=== PATIENT | female | born 1985 | race Caucasian/White ===

== ENCOUNTER 2018-01-04 09:46 | Day surgery (SDC) | payer MEDICAID, SELFPAY ==
[2018-01-04] VITALS (7 sets, daily range): BP systolic 92–119; BP diastolic 59–76; PULSE 102–107; RESP 18–20; TEMP 36.9–38.1; O2SAT 96–100; BMI 22.3
[2018-01-04 10:11] LABS: Internal QC Validated? YES +Cl - CLEAR BKGD; Pregnancy, Urine Negative Negative
[2018-01-04] MEDS: Cefazolin 2 GM in 0.9% Normal Saline 100 ML IV (12:02)
--- NOTE | 2018-01-04 12:16 | OP.PCM_ITS ---
Report of Operation Date of Procedure: 01/04/18 Pre-Operative Diagnosis: right carpal tunnel syndrome Post-Operative Diagnosis: same Surgery/Procedure Performed:: right carpal tunnel release Type of Anesthesia:: Doreen Sotomayor Anesthesiologist: Lupillo Chaney Estimated Blood Loss (mL): none Fluids Replaced: 600cc lr Description of Procedure: Piper right carpal tunnel Preoperative note Patient is a 32 year old patient with nerve conduction study confirming carpal tunnel syndrome. Patient failed conservative treatment for her carpal tunnel elected proceed with right carpal tunnel release. Risks benefits and alternatives surgery discussed with patient. Risks including but not limited to blood loss, blood clot, infection, neurovascular injury, failure procedure, loss of life and loss of limb. Patient is aware like proceed with right carpal tunnel release. Operative note Patient seen and examined preoperative holding area. right hand was marked. History and physical and consent reviewed. Patient was brought to the operating room placed supine on the operating table. Sign in, anesthesia, antibiotics were administered. right upper extremity was prepped and draped after [place] block was initiated. All bony prominences well-padded SCDs placed on bilateral lower extremities. We marked out our incisions for our carpal tunnel release at the intersection of Phoebe's line in the fourth ray flexed. We extended about a centimeter and a half. Timeout was performed. We then checked ensure that the Doreen block was working with pickups which it was not so we performed a local block of 10cc 1% lidocaine. We then used a 15 blade to make a skin incision. We then dissected down tenotomy syllable of the transverse carpal ligament. We then used a new 15 blade cut through the transverse carpal ligament down to the level of the median nerve. We then further released the median nerve the combination of the 15 blade and tenotomies. The nerve was grayish in color and adherent to the transverse carpal ligament volarly. We released the transverse carpal ligament distally to the fat pad and then proximally under standard technique. We then palpated to ensure that we released all of the transverse carpal ligament which we did. We irrigated the incision with copious amounts of sterile saline. All bleeders were coagulated. The incision was closed with interrupted 4-0 nylon stitches. Tourniquet was deflated for total working time of 10 minutes. Patient tolerated procedure well there were no complications. Patient transferred to recovery room in stable condition. Postoperative note Hospital pharmacy has prescription Leave dressing clean dry and intact Follow-up in 2 weeks Call with concerns This note was generated with [employer] dictation software. It may contain incorrect words, spelling, and punctuation that were not noted in checking the note before signing
--- NOTE | 2018-01-04 12:16 | PCM.DC.ORTHO ---
Discharge Diet: No Restrictions - keep dressing clean/dry and intact, follow up in 2 weeks, call with concerns Discharge Activity: May Not Drive May shower in (days): 1 Ice area for (Minutes): 20 - Every hour while awake. Weight Bearing Status: Weight bearing as tolerated Keep extremity elevated above heart level: Operative Extremity Call your doctor if your incision/area has: Continuous Slow Oozing, Sudden Increased Bleeding, Increased Pain/ Swelling, Increased Redness, Foul Smelling Discharge Call your doctor if you observe: Fever of 101 or Higher, Coldness, Increased Pain, Numbness or Tingling, Change in Color, Calf discomfort Allergies/Adverse Reactions: Allergies ondansetron [From Zofran (as hydrochloride)] Allergy (Verified 12/30/17 12:17) Anaphylaxis Medications to take at Discharge sumatriptan 25 mg tablet 25 mg PO ONCE 12/27/17 topiramate 25 mg tablet 25 mg PO DAILY tab 12/27/17 Albuterol Inhaler [Ventolin Hfa (SP)] 1 - 2 puff INHALATION Q6H PRN PRN 12/30/17 Montelukast [Singulair] 10 mg PO DAILY 12/30/17 Omeprazole [Prilosec] 20 mg PO DAILY 12/30/17 Oxycodone HCl/Acetaminophen [Percocet 5/325] 1 - 2 tablet PO Q6H PRN PRN 3 Days #30 tablet 01/04/18 The following prescriptions were given: Oxycodone HCl/Acetaminophen [Percocet 5/325] 1 - 2 tablet PO Q6H PRN PRN 3 Days #30 tablet PRN Reason: Pain Primary Care Physician: Radha Mckee NP-C [Primary Care Provider] - Please Follow Up With: Jen Galvan, - [phone]
[2018-01-04] MEDS: Mupirocin Ointment 22gm Tube 1 APPLIC (12:25)
== END 2018-01-04 13:37 | disposition home or self-care (01) ==
LOC: SDC 09:48 → AC 09:49
PROVIDERS: Anesthesiology; Family Provider Nurse Practitioner Family; PCP Nurse Practitioner Family; Visit Provider Orthopaedic Surgery
PROC: (CPT 64721; principal; 2018-01-04 11:20)
DX: G56.03 Carpal tunnel syndrome, bilateral upper limbs (principal); Z85.89 Personal history of malignant neoplasm of other organs and systems; Z87.442 Personal history of urinary calculi; J44.9 Chronic obstructive pulmonary disease, unspecified; K21.9 Gastro-esophageal reflux disease without esophagitis; G25.81 Restless legs syndrome; Z79.899 Other long term (current) drug therapy
CPT/HCPCS: 64721; 81025; J7120; J2405